=== PATIENT | male | born 1970 ===

== ENCOUNTER 2025-03-31 15:05 | Outpatient (AMB) | payer BC, SELFPAY | END 2025-03-31 15:07 | disposition home or self-care (01) | LOC: HO.HMGAL 15:05 | PROVIDERS: PCP Family Medicine; Visit Provider Registered Nurse Emergency | DX: J30.89 Other allergic rhinitis (principal) | CPT/HCPCS: 95117; 95165 ==

== ENCOUNTER 2025-06-23 16:17 | Outpatient (AMB) | payer BC, SELFPAY ==
--- OUTSIDE RECORDS SUMMARY | 2025-06-23 22:33 | XMS_ITS | Encounter Summary ---
Author Organization [facility] Address [address] [facility] [facility] [place] [phone] Phone Care Team Providers Care Seo Expert Name Role Phone Ilana Gallo MD Primary Care Provider Ilana Gallo MD Unavailable Олег Villaseñor MD Primary Care Provider Suha Puckett [facility] Primary Care Provider + Олег Villaseñor MD Unavailable Encounter Details Date Type Department Care Team (Late st Contact Info) Description 01/26/2021 Transcribe Orders [facility] [address] [place] [address] Ilana Gallo MD [address] [place] [address] [email or web address] Social History Tobacco Use Types Packs/Day Years Used Date Smoking Tobacco: Former Smokeless Tobacco: Former Quit: 08/20/1999 Alcohol Use Standard Drinks/Week Comments Yes 2 (1 standard drink = 0.6 oz pur e alcohol) Child or Family Care Answer Date Record ed Do you have problems with on e of the following making it difficult for you to work, study, or receive health care? No 01/25/2021 Education Answer Date Recorded Are you interested in help w ith more adult education (for example, completing high school, GED, job training, learning the [place] language, technical skills, or developing parenting skills)? No 01/25/2021 Food Answer Date Recorded Within the past 6 months we worried whether our food would run out before we got money to buy more. Never True 01/25/2021 Within the past 6 months the food we bought just didn't last and we didn't have enough money to get more. Never True Residential Stability Answer Date Recor ded What is your housing situation today? I have nacho sing 01/25/2021 How many times have you move d in the past 12 months? Zero (I did not move) 01/25/2021 06 Are you worried that in t he next 2 months, you may not have your own housing to live in? No 01/25/2021 Paying for Meds Answer Date Recorded Do you have trouble paying for medicines? No 01/25/2021 Paying Utility Bills Answer Date Record ed Do you have trouble paying your heating or elect ricity bill? No 01/25/2021 Transportation Answer Date Recorded Has the lack of transportati on kept you from medical appointments or from getting medications? No 01/25/2021 Unemployment Answer Date Recorded Are you currently unemployed or working on a part-time or temporary basis, and looking for work? No 01/25/2021 Sex and Gender Information Value Date Recorded Sex Assigned at Not on file Legal Sex Male 9:37 PM EDT Gender Identity Not on file Sexual Orientation Not on file documented as of this encounter Plan of Treatment Upcoming Encounters Date Type Department Care Team (Late st Contact Info) Description 05/04/2026 10:00 AM EDT Office Visit [facility] Medicine [address] [place] [address] Suha Puckett, WILLIAMS [address] [facility], [address] [place] [address] documented as of this encounter Visit Diagnoses Not on filedocumented in this encounter Additional Health Concerns Assessment Noted Time PHQ-2 Depression Total Score: 0 01/26/20 21 4:20 PM EDT documented as of this encounter Care Teams Seo Expert Relationship Specialty Start Date End Date Ilana Gallo MD [email or web address] PCP - General Family Medicine 08/13/18 08/07/22 Олег Villaseñor MD [address] [place] [address] [address] [place] [address] [email or web address] PCP - General Family Medicine 08/08/22 09/21/22 Suha Puckett CNP [address] [place] [address] [address] [place] [address] [email or web address] PCP - General Family Medicine 09/22/22 Ilana Gallo MD [address] [place] [address] [email or web address] Insurance Assigned Provider 04/20/1909/17 Олег Villaseñor MD [address] [place] [address] 7 [place] [address] [email or web address] Insurance Assigned Provider 10/14/23 documented as of this encounter Additional Source Comments The information contained in this document represents components of the legal health record. It is not the complete legal health record.[facility]
--- OUTSIDE RECORDS SUMMARY | 2025-06-23 22:33 | XMS_ITS | Encounter Summary ---
Author Organization [facility] Address [address] [place] [address] Phone Care Team Providers Care Armhole Baster Hand Name Role Phone Suha Puckett Gutierrez WILLIAMS Primary Care Provider + Олег Villaseñor MD Unavailable Reason for Visit * Reason Comments Medication Refill Encounter Details Date Type Department Care Team ([facility] st Contact Info) Description 05/19/2025 Refill [facility] [address] [place] [address] Fatmata Fishman PA-C [address] [place] [address] [address] [place] [address] [email or web address] Medication Refill Social History Tobacco Use Types Packs/Day Years Used Date Smoking Tobacco: Former Cigarettes 1 20.3 0 12/13/1978 - 03/16/1999 Alcohol Use Standard Drinks/Week Comments Yes 2 (1 standard drink = 0.6 oz pur e alcohol) 0-2 times a week. Child or Family Care Answer Date Record ed Do you have problems with on e of the following making it difficult for you to work, study, or receive health care? No 04/28/2025 Education Answer Date Recorded Are you interested in help w ith more adult education (for example, completing high school, GED, job training, learning the [place] language, technical skills, or developing parenting skills)? No 04/28/2025 Are you concerned about learning? Not on file 04/28/2025 No 04/28/2025 Yes 04/28/2025 Food Answer Date Recorded Within the past 6 months we worried whether our food would run out before we got money to buy more. Never True 04/28/2025 Within the past 6 months the food we bought just didn't last and we didn't have enough money to get more. Never True Residential Stability Answer Date Recor ded What is your housing situation today? I have nacho sing 04/28/2025 How many times have you move d in the past 12 months? Zero (I did not move) 04/28/2025 Paying for Meds Answer Date Recorded Do you have trouble paying for medicines? No 04/28/2025 Paying Utility Bills Answer Date Record ed Do you have trouble paying your heating or elect ricity bill? No 04/28/2025 Transportation Answer Date Recorded Has the lack of transportati on kept you from medical appointments or from getting medications? No 04/28/2025 Unemployment Answer Date Recorded Are you currently unemployed or working on a part-time or temporary basis, and looking for work? No 01/25/2021 Digital Access Answer Date Recorded No 04/28/2025 Yes 04/28/2025 Do you have reliable internet access at home? Ye s 04/28/2025 Do you have a device (e.g., phone, tablet, computer) with a working camera? Yes 04/28/2025 Intimate Partner Violence Answer Date R ecorded Denied Basic Needs Not on file 04/28/2025 In the past 12 months have y ou been in a relationship with a person who hurts, threatens, or tries to control you? No 04/28/2025 Worried food would run out Not on file 04/28 In the past 12 months have y ou been in a relationship with a person who hurts, threatens, or tries to control you? No 04/28/2025 Sex and Gender Information Value Date Recorded Sex Assigned at Not on file Legal Sex Male 9:37 PM EDT Gender Identity Not on file Sexual Orientation Not on file documented as of this encounter Progress Notes * Charo Lilly MA - 05/20/2025 11:17 AM EST Rx Care Gap Status - Instructions for Clinical Staff (prescriber discretion applies): > Mismatch review guide > N/a - No action needed Visit Info Last visit: 04/28/2025 Devonte Lara DO - [facility] > Requested f/u: Return in about 1 year (around 04/28/2026) for Annual physical with PCP. Upcoming visit: 05/04/2026 Suha Puckett CNP - Family [facility] ACTIONS TAKEN BY Charo Lilly MA MAC - Criteria met. Topical / Dermatology Rx Protocol - ciclopirox Criteria met; renew for up to 12 months. Visit in the past 14 months: Yes documented in this encounter Plan of Treatment Upcoming Encounters Date Type Department Care Team (Late st Contact Info) Description 05/04/2026 10:00 AM EDT Office Visit [facility] [address] [place] [address] Suha Puckett CNP [address] [address] [email or web address] documented as of this encounter Visit Diagnoses Not on filedocumented in this encounter Additional Health Concerns Assessment Noted Time PHQ-2 Depression Total Score: 0 04/28/20 25 2:18 PM EDT documented as of this encounter Care Teams Armhole Baster Hand Relationship Specialty Start Date End Date Suha Puckett CNP [address] [place] [id number] PCP - General Family Medicine 09/22/22 Олег Villaseñor MD [address] [place] [phone] Insurance Assigned Provider 10/14/23 documented as of this encounter Additional Source Comments The information contained in this document represents components of the legal health record. It is not the complete legal health record.[facility]
--- OUTSIDE RECORDS SUMMARY | 2025-06-23 22:33 | XMS_ITS | Encounter Summary ---
Author Organization [facility] Address [address] [place] [address] Phone Care Team Providers Care Machine Rigger Name Role Phone Tay Santiago MD Primary Care Provider Ilana Gallo MD Primary Care Provider Ilana Gallo MD Unavailable [phone] Олег Villaseñor MD Primary Care Provider Suha Puckett [facility] Primary Care Provider + Олег Villaseñor MD Unavailable Encounter Details Date Type Department Care Team (Late st Contact Info) Description 04/13/2018 Transcribe Orders [facility] [address] [place] [address] Marshal Byers MD [address] [place] [address] [email or web address] Social History Tobacco Use Types Packs/Day Years Used Date Smoking Tobacco: Never Assessed Sex and Gender Information Value Date Recorded Sex Assigned at Not on file Legal Sex Male 9:37 PM EDT Gender Identity Not on file Sexual Orientation Not on file documented as of this encounter Plan of Treatment Upcoming Encounters Date Type Department Care Team (Late st Contact Info) Description 05/04/2026 10:00 AM EDT Office Visit [facility] [address] [address] Suha Puckett CNP [address] [place] [address] [address] [place] [address] [email or web address] documented as of this encounter Visit Diagnoses Not on filedocumented in this encounter Care Teams Machine Rigger Relationship Specialty Start Date [place] [address] [email or web address] PCP - General Internal Medicine 03/30/18 08/12/18 [place] [address] [email or web address] PCP - General Family Medicine 08/13/18 08/07/22 Олег Villaseñor MD [address] [place] [address] [email or web address] PCP - General Family Medicine 08/08/22 09/21/22 Suha Puckett CNP [address] [place] [address] [email or web address] PCP - General Family Medicine 09/22/22 Ilana Gallo MD [address] [place] [address] [email or web address] Insurance Assigned Provider 04/20/19 09/17/22 Олег Villaseñor MD [address] [place] [address] [address] [place] [address] [email or web address] Insurance Assigned Provider 10/14/23 documented as of this encounter Additional Source Comments The information contained in this document represents components of the legal health record. It is not the complete legal health record.[facility]
--- OUTSIDE RECORDS SUMMARY | 2025-06-23 22:33 | XMS_ITS | Clinical Summary ---
Author Organization [facility] Address [address] [facility] [address] [place] [address] Phone Care Team Providers Care Sleeping Bag Filler Name Role Phone Thomem Gutierrez CNP Primary Care Provider + Олег Villaseñor MD Unavailable Allergies Active Allergy Reactions Criticality Noted Date Comments Hay Fever And Allergy Relief 021 Medications ciclopirox (PENLAC) 8 % solution PLEASE SEE ATTACHED FOR DETAILED DIRECTIONS 6.6 mL 3 5 Active Active Problems Problem Noted Date Diagnosed Date Routine medical exam 04/28/2025 Assessment & Plan (04/28/2025 2:38 PM EDT): Natalie Dobson is a 54 y.o. year old male presenting for his annual physical exam. I reviewed the adult health update-electronic questionnaire. he will go for his above lab work and I will update him with the results. I gave guidance to improve his diet and exercise regimen. he will follow up in a year for their annual physical exam. he understands and agrees. Screening for prostate cancer 04/28/2025 Assessment & Plan (04/28/2025 2:38 PM EDT): Natalie is due for blood work-he will get this done and I will update him with the result. Need for hepatitis C screening test 04/28/2025 Assessment & Plan (04/28/2025 2:38 PM EDT): Natalie is due for blood work-he will get this done and I will update him with the result. Screening for human immunodeficiency virus 04/28 Assessment & Plan (04/28/2025 2:38 PM EDT): Natalie is due for blood work-he will get this done and I will update him with the result. Toenail fungus 04/15/2024 Assessment & Plan (04/28/2025 2:37 PM EDT): Natalie notes that he has been having ongoing issues with toenail fungus. He would like to see a specialist for this. I placed a referral to podiatry today. He was appreciative. I also gave him guidance to use Vicks vapor rub on his toenails and to put socks on his feet at night-to do this consistently to see if this helps. He understands and agrees. He will call if there are any other issues or concerns. Assessment & Plan (04/15/2024 12:18 PM EDT): Has tried OTC antifungal medications. Will trial penlac, given information on proper use and duration of therapy. Follow up for continued concerns. Chronic low back pain 04/15/2024 Assessment & Plan (04/15/2024 12:19 PM EDT): Chronic low back pain. He has done stretches and exercises but continues to have pain. ROM intact. Intermittent use of NSAIDs. Discussed NSAID use to manage pain, it is okay to take it for acute flare ups. Referral to PT per request. Provided low back pain exercises. Subacute cough 04/15/2024 Assessment & Plan (04/15/2024 12:20 PM EDT): Dry, persistent cough for months. Doesn't recall if this started with an illness but thinks it did. With smoking history his family is concerned for lung cancer. He does not meet criteria for LDCT. Will start with CXR. Other insomnia 09/30/2022 Assessment & Plan (09/30/2022 9:42 AM EDT): Will order sleep study to assess for worsening of apnea, he does report he snores. Encounter for medical examination to establish c are 09/30/2022 Annual physical exam 09/30/2022 Assessment & Plan (04/15/2024 12:16 PM EDT): No concerning findings, labs ordered today. Referral to GI for f/u colonoscopy. Follow up for annual physical, sooner for acute concerns. Assessment & Plan (09/30/2022 9:43 AM EDT): Has been in good health. Will update labs as he feels his health is changing and wants to make sure everything is normal. No care gaps to address today. Adenomatous polyp 01/25/2021 Migraine 01/25/2021 Assessment & Plan (09/30/2022 9:41 AM EDT): Has been having frequent headaches, no red flag symptoms. Potentially due to stress and lack of sleep. Elevated blood pressure reading 01/25/2021 Assessment & Plan (09/30/2022 9:40 AM EDT): Minimally elevated in office, will continue to monitor. Discussed diet and exercise modifications. History of malaria 08/21/2018 Seasonal allergies 08/21/2018 Encounters Date Type Department Care Team Description 06/12/2025 Telephone [facility] [address] [place] [address] Janet Dumont LPN lab order 05/19/2025 Refill [facility] [address] [place] [address] Fatmata Fishman PA-C Medication Refill 05/02/2025 12:01 PM EDT - 05/02/2025 11:59 PM EDT Hospital Encounter [facility] [address] [place] [address] Devonte Lara, DO Discharge Disposition: Home or Self Care 04/29/2025 [facility]phone [facility] [address] [place] [address] Canon Thomem Gutierrez, WILLIAMS Referral 04/28/2025 2:00 PM EDT Office Visit [facility] [address] [place] [address] Devonte Lara, DO Routine medical exam (Primary Dx); Toenail fungus; Screening for prostate cancer; Need for hepatitis C screening test; Screening for human immunodeficiency virus from Last 3 Months Immunizations Immunization Administration Dates Next Due COVID-19 (Pre-05/01) Moderna Vaccine, mRNA, PF 09/23/2020,08/26/2020 INFLUENZA, SPLIT VIRUS, TRIVALENT PF 04/15/2024, 04/20/2015 Influenza Quadrivalent MDCK Preservative Free IM 05/15/2022 Influenza Quadrivalent Prese rvative Free IM 04/09/2023,04/26/2021,03/27/2020,2018,05/30/2017 Td (adult),2 Lf Tetanus Toxo id, PF, Adsorbed 09/18/2008 Tdap 12/21/2015 Zoster recombinant 08/26/2024,04/22/2024 Family History Medical History Relation Comments Bladder Cancer Father Diabetes Father Meningitis Father listeria, had groves rgery on meningiomas Emphysema Paternal Grandfather 70's Diabetes Paternal Grandmother 60's Relation Status Comments Father Paternal Grandfather Paternal Grandmother Social History Tobacco Use Types Packs/Day Years Used Date Smoking Tobacco: Former Cigarettes 1 20.3 0 12/13/1978 - 03/16/1999 Tobacco Cessation:Counseling Given: Not Answered Alcohol Use Standard Drinks/Week Comments Yes 2 [...] high school, GED, job training, learning the [place]ian language, technical skills, or developing parenting skills)? [...] on file Sexual Orientation Not on file Last Filed Vital Signs Vital Sign Reading Time Taken Comments Blood Pressure 132/88 04/28/2025 2:35 PM EDT Pulse 93 04/28/2025 2:08 PM EDT Temperature 36.4 C (97.6 F) 04/28/2025 2:08 PM EDT Respiratory Rate - - Oxygen Saturation 97% 04/28/2025 2:08 PM EDT Inhaled Oxygen Concentration - - Weight 87.5 kg (192 lb 12.8 oz) 04/28/2025 2:08 PM EDT Height 181.6 cm (5' 11.5 ) 04/28/2025 2:08 PM ED T Body Mass Index 26.52 04/28/2025 2:08 PM EDT Plan of Treatment Upcoming Encounters Date Type Department Care Team (Late st Contact Info) Description 05/04/2026 10:00 AM EDT Office Visit [facility] [address] [place] [address] Suha Puckett, [employer] SALESPERSON [address] [facility], [address] [place] [address] [email or web address] Due Date Last Done Comments COLOGUARD 2013 FIT TEST 2013 FOBT 2013 SIGMOIDOSCOPY 2013 VIRTUAL COLONOSCOPY 2013 PNEUMOCOCCAL VACCINES (50+ years) (1 of 1 - PCV) 2018 INFLUENZA VACCINE (#1) 2025 , 04/09/2023, 05/15/2022, Additional history exists Adult Td,Tdap Booster 12/20/2025 12/21/2015, 009 DEPRESSION SCREENING 04/28/2026 04/28/2025 SCREENING FOR DIABETES 05/02/2028 05/02/2025, 2024 COLONOSCOPY 09/02/2029 09/02/2024, 05/11/2018 COLORECTAL CANCER SCREENING 09/02/2029 LIPID PANEL 05/02/2030 05/02/2025, 10/01/2024, 09/30/2022, Additional history exists RSV VACCINE (1 - 1-dose 75+ series) 2043 ZOSTER VACCINES Completed 08/26/2024, 04/22/2024 COVID-19 VACCINE Completed 04/01/2025, , 03/15/2024, Additional history exists SMOKING STATUS SCREENING (Once After 26 Yrs) Completed 04/28/2025 HEPATITIS C SCREENING Completed 05/02/2025 HIV ONE-TIME SCREENING (18-65 YEARS) Completed 05/02/2025 HEPATITIS A VACCINES Aged Out No long er eligible based on patient's age to complete this topic HIB VACCINES Aged Out No longer eligi ble based on patient's age to complete this topic MENINGOCOCCAL VACCINES (ACWY) Aged Out No longer eligible based on patient's age to complete this topic MENINGOCOCCAL VACCINES (B) Aged Out N o longer eligible based on patient's age to complete this topic Medical Devices Not on file Procedures Procedure Name Priority Date/Time Associated Diagnosis Comments MEASLES ANTIBODY, IGG Routine 06/13/2025 12:30 PM EST Screening for multiple conditions MUMPS ANTIBODY, IGG Routine 06/13/2025 1 2:30 PM EST Screening for multiple conditions RUBELLA ANTIBODY, IGG Routine 06/13/2025 12:30 PM EST Screening for multiple conditions COMPREHENSIVE METABOLIC PANEL (CMP) Routine 05/02/2025 12:25 PM EDT Routine medical exam LIPID PANEL Routine 05/02/2025 12:25 PM EDT Routine medical exam CBC Routine 05/02/2025 12:25 PM EDT Routine medical exam PSA (SCREENING) Routine 05/02/2025 12:25 PM EDT Screening for prostate cancer HEMOGLOBIN A1C Routine 05/02/2025 12:25 PM EDT Routine medical exam HEPATITIS C ANTIBODY, QUALITATIVE Routine 05/02/2025 12:25 PM EDT Need for hepatitis C screening test HIV-1/2 ANTIGEN/ANTIBODY Routine 05/02/2025 12:25 PM EDT Screening for human immunodeficiency virus HM COLONOSCOPY FOR RESULT ENTRY ONLY Routine 09/02/2024 from Last 3 Months or Most Recently Relevant to Health Maintenance Results * Mumps Antibody, IgG (06/13/2025 12:30 PM EST) Mumps Ab IgG Positive Negative 06/17/2025 9:56 AM [facility] Comment:Results suggest resp onse to immunization or prior exposure to the virus. Blood (Blood) Venipuncture / Unknown 06/13/2025 12:30 PM EST 06/13/2025 12:30 PM EST Nasrin Velez MD LAB BLOOD BKR ORDERABLES Fi nal Result Performing Organization Address City/[facility]/ZIP Co de Phone Number [address] [address] * Rubella Antibody, IgG (06/13/2025 12:30 PM EST) Rubella Antibody, IgG Negative 06/16/2025 10:17 AM [facility] Comment:No antibody detected Blood (Blood) Venipuncture / Unknown 06/13/2025 12:30 PM EST 06/13/2025 12:30 PM EST Nasrin Velez MD LAB BLOOD BKR ORDERABLES Fi nal Result Performing Organization Address [facility] Co de Phone Number [address] [address] * Measles Antibody, IgG (06/13/2025 12:30 PM EST) Measles Ab IgG Positive Negative 06/16/2025 8:08 AM [facility] Comment:Results suggest resp onse to immunization or prior exposure to the virus. Blood (Blood) Venipuncture / Unknown 06/13/2025 12:30 PM EST 06/13/2025 12:30 PM EST Nasrin Velez MD LAB BLOOD BKR ORDERABLES Fi nal Result Performing Organization Address City/[facility]/ZIP Co de Phone Number [address] [address] * (ABNORMAL) Comprehensive metabolic panel (05/02/2025 12:25 PM EDT) SODIUM 139 133 - 146 mmol/L [facility] POTASSIUM 4.4 3.3 - 5.1 mmol/L [facility] CHLORIDE 103 96 - 108 mmol/L [facility] CO2 25 21 - 35 mmol/L [facility] BUN 16 6 - 19 mg/dL [facility] CREATININE 0.70 0.5 - 1.5 mg/dL [facility] GLUCOSE 107(H) 70 - 99 mg/dL [facility] ALBUMIN 4.6 3.9 - 4.8 g/dL [facility] TOTAL PROTEIN 6.7 6.5 - 8.0 g/dL [facility] CALCIUM 8.9 8.4 - 10.3 mg/dL [facility] ALKALINE PHOSPHATASE 46 39 - 117 U/L [facility] TOTAL BILIRUBIN 0.4 0.0 - 1.2 mg/dL [facility] AST 21 0 - 37 U/L [facility] ALT 25 0 - 40 U/L [facility] GLOBULIN 2.1 1 - 4.8 g/dL [facility] EGFR 108 >59 mL/min/1.7 3m2 [facility] Comment:Estimated glomerular filtration rate calculated using the CKD-EPI refit equation. ANION GAP 15 10 - 20 mmol/L [facility] Blood 05/02/2025 12:2 5 PM EDT 05/02/2025 12:29 PM EDT Devonte Lara DO LAB BLOOD BKR ORDERABLES Final R esult [facility] [address] [place] [address] * HIV-1/2 antigen/antibody (05/02/2025 12:25 PM EDT) HIV-1/2 Antigen/Antibo dy NON-REACTI VE NON-REACTI VE [facility] Blood 05/02/2025 12:2 5 PM EDT 05/02/2025 12:29 PM EDT Devonte Lara DO LAB BLOOD BKR ORDERABLES Final R esult [address] [address] * Hepatitis C antibody, qualitative (05/02/2025 12:25 PM EDT) HCV NON-REACTIV E NON-REACTI VE [facility] Blood 05/02/2025 12:2 5 PM EDT 05/02/2025 12:29 PM EDT Devonte Lara DO LAB BLOOD BKR ORDERABLES Final R esult [address] [address] * (ABNORMAL) CBC (05/02/2025 12:25 PM EDT) WBC 3.66(L) 4.00 - 11.00 K/uL [facility] RBC 5.03 4.50 - 5.90 M/uL [facility] HGB 14.3 13.5 - 17.5 g/dL [facility] HCT 44.0 41.0 - 53.0 % [facility] PLT 264 150 - 450 K/uL [facility] MCV 87.5 80.0 - 100.0 fL [facility] MCH 28.4 27.0 - 31.0 pg [facility] MCHC 32.5 32.0 - 36.0 g/dL [facility] RDW 13.3 11.5 - 14.5 % [facility] MPV 9.8 8.4 - 12.0 fL [facility] NRBC 0.00 0.00 /100 WBCs [facility] ABSOLUTE NRBC 0.00 0.00 K/uL [facility] Blood 05/02/2025 12:2 5 PM EDT 05/02/2025 12:29 PM EDT Devonte Courtneyd DO LAB BLOOD BKR ORDERABLES Final R [facility] [address] [address] * PSA (screening) (05/02/2025 12:25 PM EDT) PSA 0.50 0 - 4.00 ng/mL [facility] Comment: Test Methodology Isiah e801 Patient results determined by assays using different manufacturers or methods may not be comparable. Blood 05/02/2025 12:2 5 PM EDT 05/02/2025 12:29 PM EDT Devonte Mary Jane Lara DO LAB BLOOD BKR ORDERABLES Final R [facility] Performing Organization Address [facility]/ZIP Co de Phone Number [address] [address] * Hemoglobin A1c (05/02/2025 12:25 PM EDT) Pathologist [facility] HEMOGLOBIN A1C 5.6 4.3 - 5.8 % [facility] Blood 05/02/2025 12:2 5 PM EDT 05/02/2025 12:29 PM EDT Devonte Lara DO LAB BLOOD BKR ORDERABLES Final R [facility] Performing Organization Address City/[facility]/ZIP Co de Phone Number [address] [address] * (ABNORMAL) Lipid panel (05/02/2025 12:25 PM EDT) HDL 85 mg/dL [facility] Comment: Interpretation <40 mg/dL: Low HDL cholesterol (major risk factor for CHD) Greater than or equal to 60 mg/dL: High HDL cholesterol ( negative risk factor for CHD) HDL - cholesterol is affected by a number of factors, e.g. smoking, excerise, hormones, sex and age. CHOLESTEROL 207 0 - 240 mg/dL [facility] TRIGLYCERIDES 50 30 - 160 mg/dL [facility] LDL 112 50 - 129 mg/dL [facility] Comment: LDL levels in terms of risk for coronary heart disease: <100 mg/dL: Optimal 100-129 mg/dL: Near or above optimal 130-159 mg/dL: Borderline high 160-189 mg/dL: High >190 mg/dL: Very High CARDIAC RISK RATIO 2.4(L) 3.4 - 5.0 C [facility] Blood 05/02/2025 12:2 5 PM EDT 05/02/2025 12:29 PM EDT Devonte Lara DO LAB BLOOD BKR ORDERABLES Final R esult [facility] [address] [place] [address] * COLONOSCOPY FOR RESULT ENTRY ONLY (09/02/2024) HM Colonoscopy 3 years Historical Provider HEALTH MAINTENANCE Final Result from Last 3 Months or Most Recently Relevant to Health Maintenance Insurance [facility] Member Subscriber Plan / Payer (Ef fective 2014-Present) Name:NATALIE MULLINS Relation to Subscriber:Spouse Name:FryeRobinsonEdy Tina Date of :1963 (Home) Address: [address] [place] [address] Payer ID:[id number] (NAIC) Type:HMO Address: [facility] [id number] [place] [id number] Care Teams Sleeping Bag Filler Relationship Specialty Start Date End Date Lamin Puckettdereck Gutierrez CNP [address] [facility], [address] [place] [address] [email or web address] PCP - General Family Medicine 09/22/22 Олег Villaseñor MD [address] [facility], [address] [place] [address] [email or web address] Insurance Assigned Provider 10/14/23 Additional Source Comments The information contained in this document represents components of the legal health record. It is not the complete legal health record.[facility]
--- OUTSIDE RECORDS SUMMARY | 2025-06-23 22:33 | XMS_ITS | Encounter Summary ---
Author Organization [facility] Address [address] [place] [address] Phone Care Team Providers Care Skip Loader Name Role Phone Tay Santiago MD Primary Care Provider Ilana Gallo MD Primary Care Provider Ilana Gallo MD Unavailable [phone] Олег Villaseñor MD Primary Care Provider Suha Puckett [facility] Primary Care Provider + Олег Villaseñor MD Unavailable Encounter Details Date Type Department Care Team (Latest Contact Info) Description 03/30/2018 Transcribe Orders [facility] Phleb Harriet [address] [place], [place] [phone] Marshal Byers MD [address] [phone] jose Blood in stool (Primary Dx) Social History Tobacco Use Types Packs/Day Years [...] Description 05/04/2026 10:00 AM EDT Office Visit [facility] [address] [place] [address] Canon Suha Matt, DIRECTOR DANCE [address] [facility], [address] [place] [address] [email or web address] documented as of this encounter Results * Giardia antigen screen (04/13/2018 9:20 AM EDT) ST GIARDIA ANTIGEN Negative Negative [facility] DPT OF LAB MED AND PAT+ Stool (Stool) 04/13/2018 9:2 0 AM EDT 04/13/2018 12:17 PM EDT us Marshal Byers MD LAB BODY FLUIDS AND STOOL ORDERABLES Final Result [facility] DPT OF LAB MED AND PAT+ [address] [place] [address] * Ova and parasites, stool (04/13/2018 6:30 AM EDT) Specimen Source/ Description STOOL STOOL [facility] Special Requests None [facility] DIRECT EXAM NO PARASITES FOUND BY DIRECT OR CONCENTRATION METHODS [facility] DIRECT EXAM No parasites found by Trichrome Stain [facility] Report Status 04/17/2018 FINAL [facility] Stool (Stool) 04/13/2018 6:3 0 AM EDT 04/13/2018 12:15 PM EDT us Marshal Byers MD LAB BODY FLUIDS AND STOOL ORDERABLES Final Result [facility] [address] [place] [address] * Stool culture (04/13/2018 6:30 AM EDT) Specimen Source/ Description STOOL STOOL [facility] Special Requests None [facility] Culture/Test NO SALMONELLA, SHIGELLA OR CAMPYLOBACTER ISOLATED [facility] Report Status 04/16/2018 FINAL [facility] Stool (Stool) 04/13/2018 6:3 0 AM EDT 04/13/2018 12:15 PM EDT us Marshal Byers MD LAB MICROBIOLOGY CULTURE O RDERABLES Final Result Performing Organization Address [facility] Co de Phone Number [address] [address] * Ova and parasites, stool (04/12/2018 6:30 AM EDT) Specimen Source/ Description STOOL PARA KAY STOOL [facility] Special Requests None [facility] DIRECT EXAM NO PARASITES FOUND BY DIRECT OR CONCENTRATION METHODS [facility] DIRECT EXAM No parasites found by Trichrome Stain [facility] Report Status 04/17/2018 FINAL [facility] Stool (Stool) 04/12/2018 6:3 0 AM EDT 04/13/2018 12:14 PM EDT us Marshal Byers MD LAB BODY FLUIDS AND STOOL ORDERABLES Final Result Performing Organization Address [facility] Co de Phone Number [address] [address] * Ova and parasites, stool (04/10/2018 8:30 AM EDT) Specimen Source/ Description STOOL PARA KAY STOOL [facility] Special Requests None [facility] DIRECT EXAM NO PARASITES FOUND BY DIRECT OR CONCENTRATION METHODS [facility] DIRECT EXAM No parasites found by Trichrome Stain [facility] Report Status 04/17/2018 FINAL [facility] Stool (Stool) 04/10/2018 8:3 0 AM EDT 04/13/2018 12:14 PM EDT us Marshal Byers MD LAB BODY FLUIDS AND STOOL ORDERABLES Final Result Performing Organization Address [facility]/ZIP Co de Phone Number [address] [address] * Immunoglobulin A (03/30/2018 12:17 PM EDT) IgA 102 70 - 400 mg/dL [facility] Blood 03/30/2018 12:1 7 PM EDT 03/30/2018 12:25 PM EDT us Marshal Byers MD LAB BLOOD BKR ORDERABLES F inal Result [facility] [address] [place] [address] * Tissue transglutaminase IgA (03/30/2018 12:17 PM EDT) TTG IGA ANTIBODY <1.2 <4.0 (Negative) U/mL [facility] DPT OF LAB MED AND PAT+ Blood 03/30/2018 12:1 7 PM EDT 03/30/2018 12:24 PM EDT Marshal Byers MD LAB BLOOD BKR ORDERABLES F inal Result Performing Organization Address City/[facility]/ZIP Co de Phone Number [facility] DPT OF LAB MED AND PAT+ [address] [place] [address] * Gliadin deamidated antibody, IgG/IgA (03/30/2018 12:17 PM EDT) Gliadin Ab, IGA <10.0 <20.0 (Negative) U [facility] DPT OF LAB MED AND PAT+ GLIADIN AB IGG <10.0 <20.0 (Negative) U [facility] DPT OF LAB MED AND PAT+ Blood 03/30/2018 12:1 7 PM EDT 03/30/2018 12:24 PM EDT us Marshal Byers MD LAB BLOOD ORDERABLES Final Result [facility] DPT OF LAB MED AND PAT+ [address] [place] [address] documented in this encounter Visit Diagnoses Diagnosis Blood in stool- Primary documented in this encounter Care Teams Skip Loader Relationship Specialty Start Date [place] [address] [email or web address] PCP - General Internal Medicine 03/30/18 08/12/18 [place] [address] [email or web address] PCP - General Family Medicine 08/13/18 08/07/22 Олег Villaseñor MD [address] [place] [address] [address] [place] [address] [email or web address] PCP - General Family Medicine 08/08/22 09/21/22 Suha Puckett CNP [address] [place] [address] [address] [place] [address] [email or web address] PCP - General Family Medicine 09/22/22 Ilana Gallo MD [address] [place] [address] [email or web address] Insurance Assigned Provider 04/20/19 09/17/22 Олег Villaseñor MD [address] [place] [address] [address] [place] [address] [email or web address] Insurance Assigned Provider 10/14/23 documented as of this encounter Additional Source Comments The information contained in this document represents components of the legal health record. It is not the complete legal health record.[facility]
== END 2025-06-23 16:18 | disposition home or self-care (01) ==
LOC: HO.HMGAL 16:17
PROVIDERS: PCP Family Medicine; Visit Provider Registered Nurse Emergency
DX: J30.89 Other allergic rhinitis (principal)
CPT/HCPCS: 95117; 95165